=== PATIENT | male | born 1985 | race Caucasian/White ===

== ENCOUNTER 2024-09-11 11:10 | Emergency (ER) | payer BC, OTHER ==
[~2024-09-11] VITALS: Ht 180.3 cm; Wt 83.9 kg
[2024-09-11] MEDS ORDERED: ONDANSETRON 4 MG/2 ML VIAL ONE (11:31)
[2024-09-11] MEDS ORDERED: KETOROLAC TROMETHAMINE 15 MG INJ ONE (11:31)
[2024-09-11] MEDS ORDERED: FENTANYL CITRATE 100 MCG/2 ML AMPUL ONE (11:32)
[2024-09-11 11:35] LABS: BASOPHILS # (AUTO) 0.1 K/UL (0.0-0.2); BASOPHILS % (AUTO) 0.6 % (0.0-2.0); EOSINOPHILS % (AUTO) 0.3 % (0.0-7.0); HEMATOCRIT 41.9 % (36.7-47.1); HEMOGLOBIN 14.8 g/dL (12.5-16.3); LYMPHOCYTES # (AUTO) 1.8 K/uL (0.8-4.8); LYMPHOCYTES % (AUTO) 17.1 % (20.5-51.5); MEAN CORPUSCULAR HEMOGLOBIN 31.1 uug (23.8-33.4); MEAN CORPUSCULAR HGB CONC 35 g/dL (32.5-36.3); MEAN CORPUSCULAR VOLUME 88.3 fL (73.0-96.2); MONOCYTES # (AUTO) 0.5 K/uL (0.1-1.30); MONOCYTES % (AUTO) 5.2 % (0.0-11.0); NEUTROPHILS % (AUTO) 76.8 % (38.5-71.5); PLATELET COUNT (AUTO) 232 K/uL (152-348); RED BLOOD CELL COUNT(AUTO) 4.74 MIL/uL (4.06-5.63); RED CELL DISTRIBUTION WIDTH 12.9 % (12.1-16.2); WHITE BLOOD COUNT (AUTO) 10.4 K/uL (3.6-10.2)
[2024-09-11] MEDS: FENTANYL CITRATE 100 MCG/2 ML AMPUL IV ONE (11:40)
[2024-09-11] MEDS: ONDANSETRON 4 MG/2 ML VIAL IV ONE (11:40)
[2024-09-11] MEDS: IV NORMAL SALINE 1000 ML BAG IV ONE (11:40)
[2024-09-11] MEDS: KETOROLAC TROMETHAMINE 15 MG INJ IVP ONE (11:40)
[2024-09-11 11:44] LABS: CALCIUM 8.8 mg/dL (8.5-10.1); CREATININE 1.1 mg/dL (0.6-1.3); POTASSIUM 3.6 mmol/L (3.5-5.1)
[2024-09-11 11:52] LABS: DIFFERENTIAL COMMENT 1
[2024-09-11 11:56] LABS: ALBUMIN 3.8 g/dL (3.4-5.0); BILIRUBIN,DIRECT 0.1 mg/dL (0.0-0.2); BILIRUBIN,TOTAL 0.6 mg/dL (0.2-1.0); TOTAL PROTEIN, SERUM 7.2 g/dL (6.4-8.2)
[2024-09-11] MEDS ORDERED: CEPH500C2 PO (12:58)
[2024-09-11] MEDS ORDERED: ONDA4TAB5 PO (12:58)
[2024-09-11] MEDS ORDERED: HYDR-4209 PO (12:58)
[2024-09-11] MEDS ORDERED: TAMS-3 PO (12:58)
[2024-09-11] MEDS ORDERED: CEFTRIAXONE /D5W 50ML IVPB **ER PYXIS IV ONE (13:02)
[2024-09-11] MEDS: CEFTRIAXONE 1 G in IV DEXTROSE 5% 50 ML IV ONE (13:04)
[2024-09-11 13:23] LABS: *BILIRUBIN,URIN NEGATIVE (NEGATIVE); *BLOOD, URINE 3+ (NEGATIVE); *CLARITY,URINE CLEAR (CLEAR); *COLOR,URINE YELLOW (YELLOW); *KETONES,URINE NEGATIVE (NEGATIVE); *PROTEIN,URINE 1+ (NEGATIVE); *UROBILINOGEN,URINE 0.2 E.U./dl (NORMAL); LEUKOCYTE ESTERASE ,URINE NEGATIVE (NEGATIVE); NITRITE, URINE NEGATIVE (NEGATIVE); PH,URINE 5.5 (5.0-8.0); UGLUCOSE NEGATIVE (NEGATIVE)
[2024-09-11 13:32] LABS: BACTERIA,URINE MANY /HPF (NONE SEEN); RBC,URINE 20-50 /HPF (0-3); SQUAMOUS EPITHELIAL CELL,UR FEW /HPF (NONE SEEN); WBC,URINE 0-3 /HPF (0-3)
[2024-09-11 14:58] VITALS: BP 140/92; O2SAT 98
== END 2024-09-11 15:02 | disposition home or self-care (01) ==
LOC: ER 11:10
DX: N20.2 Calculus of kidney with calculus of ureter (principal); B02.9 Zoster without complications; L40.50 Arthropathic psoriasis, unspecified
CPT/HCPCS: 99285; 74176; 96365; 96375; 96361; 80076; 80048; 81001; 83690; 85025; 87086; 36415; J1885; J0696; J2405; J3010; J7040; A4606; A4663

== ENCOUNTER 2024-09-12 04:25 | Emergency (ER) | payer BC ==
[~2024-09-12] VITALS: Ht 182.9 cm; Wt 83.9 kg
[~2024-09-12 04:25] MED LIST: CEPH500C2 PO; HYDR-4209 PO; ONDA4TAB5 PO; TAMS-3 PO
[2024-09-12] MEDS: HYDROCODONE/APAP 5-325MG TABLET PO ONE (05:14)
[2024-09-12] MEDS: KETOROLAC TROMETHAMINE 30 MG INJ IM ONE (05:14)
[2024-09-12 06:15] VITALS: BP 134/80; TEMP 97.8; O2SAT 98
== END 2024-09-12 06:15 | disposition home or self-care (01) ==
LOC: ER 04:42
DX: N20.1 Calculus of ureter (principal); B02.9 Zoster without complications; L40.50 Arthropathic psoriasis, unspecified; Z87.442 Personal history of urinary calculi
CPT/HCPCS: 99284; 96372; J1885; A4606; A4663

== ENCOUNTER 2024-09-14 07:21 | Emergency (ER) | payer BC ==
[~2024-09-14] VITALS: Ht 182.9 cm; Wt 83.9 kg
[2024-09-14] MEDS ORDERED: KETOROLAC TROMETHAMINE 30 MG INJ ONE (07:55)
[2024-09-14] MEDS: IV NORMAL SALINE 1000 ML BAG IV ONE (08:02)
[2024-09-14] MEDS: KETOROLAC TROMETHAMINE 30 MG INJ IVP ONE (08:03)
[2024-09-14 08:09] LABS: BASOPHILS # (AUTO) 0.1 K/UL (0.0-0.2); BASOPHILS % (AUTO) 0.9 % (0.0-2.0); EOSINOPHILS # (AUTO) 0.1 K/uL (0.0-0.7); EOSINOPHILS % (AUTO) 1.3 % (0.0-7.0); HEMATOCRIT 38.6 % (36.7-47.1); HEMOGLOBIN 13.8 g/dL (12.5-16.3); LYMPHOCYTES # (AUTO) 1.7 K/uL (0.8-4.8); LYMPHOCYTES % (AUTO) 22.2 % (20.5-51.5); MEAN CORPUSCULAR HEMOGLOBIN 31.6 uug (23.8-33.4); MEAN CORPUSCULAR HGB CONC 36 g/dL (32.5-36.3); MEAN CORPUSCULAR VOLUME 88.5 fL (73.0-96.2); MONOCYTES # (AUTO) 0.6 K/uL (0.1-1.30); NEUTROPHILS % (AUTO) 67.6 % (38.5-71.5); PLATELET COUNT (AUTO) 245 K/uL (152-348); RED BLOOD CELL COUNT(AUTO) 4.36 MIL/uL (4.06-5.63); RED CELL DISTRIBUTION WIDTH 12.9 % (12.1-16.2); WHITE BLOOD COUNT (AUTO) 7.4 K/uL (3.6-10.2)
[2024-09-14 08:10] LABS: DIFFERENTIAL COMMENT 1
[2024-09-14 08:20] LABS: CALCIUM 8.6 mg/dL (8.5-10.1); POTASSIUM 3.8 mmol/L (3.5-5.1)
[2024-09-14] MEDS ORDERED: GABA100C PO (09:29)
[2024-09-14] MEDS ORDERED: HYDR-3980 PO (09:29)
[2024-09-14 09:58] VITALS: BP 127/76; TEMP 98; O2SAT 99
== END 2024-09-14 10:04 | disposition home or self-care (01) ==
LOC: ER 07:21
DX: R10.9 Unspecified abdominal pain (principal)
CPT/HCPCS: 99285; 96374; 76770; 96361; 80048; 85025; 36415; J1885; J7040; A4606; A4663